=== PATIENT | female | born 1950 | race Caucasian/White ===

== ENCOUNTER 2023-05-28 17:09 | Inpatient (IN) | payer OTHER ==
[2023-05-28] MEDS ORDERED: Ondansetron ODT 4 MG TAB SL PRN (20:15)
[2023-05-28] MEDS ORDERED: Ondansetron PF 4 MG/2 ML Vial IVP PRN (20:15)
[2023-05-28 20:56] VITALS: BMI 30.2
[2023-05-28] MEDS ORDERED: Acetaminophen 650 MG Suppository PR PRN (20:57)
[2023-05-28] MEDS: Acetaminophen 325 MG TAB PO PRN (22:22)
[2023-05-28] MEDS ORDERED: Piperacillin/Tazobactam 3.375 GM in Sodium Chloride 0.9% 100 ML IVPB SCH ×2 (23:15→23:30)
[2023-05-28] MEDS ORDERED: Pantoprazole 40 MG VIAL IVP SCH (23:30)
[2023-05-28] MEDS ORDERED: Vancomycin HCl 500 MG in Sodium Chloride 0.9% 100 ML IVPB SCH (23:30)
[2023-05-29 04:14] LABS: Hematocrit 24.2 % (36.0-47.0); Hemoglobin 6.9 g/dL (12.0-16.0); Manual Diff?? YES; Mean Corpuscular HGB CONC 28.5 g/dL (32.0-36.0); Mean Corpuscular Hemoglobin 20.2 pg (27.0-31.0); Mean Platelet Volume 8.8 fL (7.4-10.4); Platelet Count 747 10x3/uL (130-400); RBC Distribution Width 19.5 % (11.5-14.5); Red Blood Cell (RBC) Count 3.41 mill/uL (4.20-5.40); White Blood Cell (WBC) Count 38.9 10x3/uL (4.8-10.8)
[2023-05-29 04:16] LABS: Delete Auto Diff?? YES
[2023-05-29] MEDS: Piperacillin/Tazobactam 3.375 GM in Sodium Chloride 0.9% 100 ML IVPB SCH ×3 (04:20→20:25)
[2023-05-29 04:40] LABS: Anion Gap 13 mmol/L (10-20); BUN (Urea Nitrogen) 12 mg/dL (9.8-20.1); Calc. Creatinine Clearance 105 mL/min (70-130); Calcium 8.4 mg/dL (7.8-10.44); Carbon Dioxide 24 mmol/L (23-31); Chloride 101 mmol/L (98-107); Estimated GFR 97; Glucose 137 mg/dL (80-115); Potassium 3.5 mmol/L (3.5-5.1); Sodium 134 mmol/L (136-145)
[2023-05-29 04:48] LABS: Anisocytosis MODERATE=16-30 cells HPF (0-5); Band 3 % (5-11); CellaVision Operator ID lab.sh2; Hypochromia SLIGHT = 6-15 cells HPF (0-5); Large Platelets 1.7 % (0-5); Lymphocytes 4 % (21-51); Macrocytosis SLIGHT = 6-15 cells HPF (0-5); Microcytosis SLIGHT = 6-15 cells HPF (0-5); Monocytes 3 % (0-10); Neutrophil 91 % (42-75); Ovalocytes SLIGHT = 2-5 cells HPF (0-1); Platelet Adequacy Comment Platelets Increased; Poikilocytosis MODERATE=16-30 cells HPF (0-5); Polychromasia MODERATE = 3-4 cells HPF (0-2); Target Cells MODERATE= 6-15 cells HPF (0-1); Total Cell Count 115
[2023-05-29] MEDS: Enoxaparin 40 MG (0.4 mL) SYRINGE SC SCH (08:38)
[2023-05-29] MEDS: Pantoprazole 40 MG VIAL IVP SCH (08:38)
[2023-05-29] MEDS: Vancomycin (BATCH) 1.25 GM in Premix 1 BAG IVPB SCH ×2 (08:38→20:56)
[2023-05-29] MEDS: Acetaminophen 325 MG TAB PO PRN ×2 (10:36→20:27)
[2023-05-29 18:19] LABS: Hematocrit 30.6 % (36.0-47.0)
[2023-05-29 18:21] LABS: Platelet Count 848 10x3/uL (130-400)
[2023-05-30] MEDS: Piperacillin/Tazobactam 3.375 GM in Sodium Chloride 0.9% 100 ML IVPB SCH ×3 (05:05→20:27)
[2023-05-30 05:53] LABS: #Basophils 0.1 thou/uL (0.0-0.2); #Eosinphils 0.1 thou/uL (0.0-0.7); #Neutrophils 37.9 thou/uL (1.40-6.50); %Basophils 0.3 % (0.0-1.0); %Eosinophils 0.3 % (0.0-10.0); %Monocytes 4.8 % (0.0-10.0); %Neutrophils 91.3 % (42.0-75.0); Hematocrit 30.2 % (36.0-47.0); Hemoglobin 8.7 g/dL (12.0-16.0); Manual Diff?? YES; Mean Corpuscular HGB CONC 28.8 g/dL (32.0-36.0); Mean Corpuscular Hemoglobin 21.1 pg (27.0-31.0); Mean Corpuscular Volume 73.1 fl (78.0-98.0); Mean Platelet Volume 9.6 fL (7.4-10.4); RBC Distribution Width 19.8 % (11.5-14.5); Red Blood Cell (RBC) Count 4.13 mill/uL (4.20-5.40); White Blood Cell (WBC) Count 41.5 10x3/uL (4.8-10.8)
[2023-05-30 05:55] LABS: Platelet Count 666 10x3/uL (130-400)
[2023-05-30 06:20] LABS: Anisocytosis MODERATE=16-30 cells HPF (0-5); Band 4 % (5-11); CellaVision Operator ID LAB.CLH1; Hypochromia MODERATE=16-30 cells HPF (0-5); Macrocytosis SLIGHT = 6-15 cells HPF (0-5); Microcytosis SLIGHT = 6-15 cells HPF (0-5); Monocytes 2 % (0-10); Neutrophil 94 % (42-75); Platelet Adequacy Comment Platelets Increased; Poikilocytosis MODERATE=16-30 cells HPF (0-5); Polychromasia SLIGHT = 2-3 cells HPF (0-2); Total Cell Count 100
[2023-05-30] MEDS ORDERED: Promethazine HCl 25 MG/ML VIAL IM PRN (08:21)
[2023-05-30] MEDS ORDERED: Ondansetron HCl/PF 4 MG/2 ML Vial IVP PRN (08:21)
[2023-05-30] MEDS: Pantoprazole 40 MG VIAL IVP SCH (08:31)
[2023-05-30] MEDS: Enoxaparin 40 MG (0.4 mL) SYRINGE SC SCH (08:31)
[2023-05-30 08:54] LABS: Vancomycin, Trough 14.7 ug/mL
[2023-05-30] MEDS ORDERED: EPINEPHrine 1 MG/ML VIAL ONE (09:29)
[2023-05-30] MEDS ORDERED: Bupivacaine PF 0.5% 30 ML VIAL ONE (09:29)
[2023-05-30] MEDS ORDERED: PROPOFOL 20 ML ONE (09:37)
[2023-05-30] MEDS ORDERED: fentaNYL 50 mcg/mL 1 mL Vial ONE ×2 (09:38→10:31)
[2023-05-30] MEDS ORDERED: Lidocaine 1% PF 5 ML VIAL ONE ×3 (09:42→09:58)
[2023-05-30] MEDS ORDERED: Rocuronium Bromide 10 MG/ML (10ML VIAL) ONE ×2 (09:43→09:58)
[2023-05-30] MEDS ORDERED: PROPOFOL 200 MG/20 ML VIAL ONE (09:58)
[2023-05-30] MEDS ORDERED: Dexamethasone 20 MG/5 ML VIAL ONE (09:58)
[2023-05-30] MEDS ORDERED: Ondansetron PF 4 MG/2 ML Vial ONE (09:58)
[2023-05-30] MEDS ORDERED: PHENYLEPHRINE-NS 100 MCG/ML 10 ML SYRINGE ONE ×2 (09:58→10:07)
[2023-05-30] MEDS ORDERED: SUGAMMADEX SODIUM 200 MG/2 ML VIAL ONE (11:09)
[2023-05-30] MEDS ORDERED: Morphine 4 MG/ML VIAL SLOW IVP PRN (12:17)
[2023-05-30] MEDS ORDERED: fentaNYL 50 mcg/mL 1 mL Vial SLOW IVP PRN ×2 (12:17)
[2023-05-30] MEDS ORDERED: Ondansetron PF 4 MG/2 ML Vial IVP PRN (12:17)
[2023-05-30] MEDS ORDERED: Ipratropium/Albuterol 3 ML NEB NEB PRN (12:17)
[2023-05-30] MEDS ORDERED: traMADol HCl 50 MG TAB PO PRN (12:17)
[2023-05-30] MEDS: Morphine 2 MG/ML VIAL SLOW IVP PRN ×2 (12:57→22:33)
[2023-05-30] MEDS: Vancomycin (BATCH) 1.25 GM in Premix 1 BAG IVPB SCH ×2 (13:03)
[2023-05-30] MEDS: Clindamycin/D5W 900 MG in Premix 1 BAG IVPB SCH ×2 (13:52→22:33)
[2023-05-30 14:10] LABS: Anion Gap 15 mmol/L (10-20); BUN (Urea Nitrogen) 20 mg/dL (9.8-20.1); Calc. Creatinine Clearance 94 mL/min (70-130); Calcium 8.7 mg/dL (7.8-10.44); Carbon Dioxide 22 mmol/L (23-31); Chloride 103 mmol/L (98-107); Estimated GFR 94; Glucose 146 mg/dL (80-115); Potassium 4.2 mmol/L (3.5-5.1); Sodium 136 mmol/L (136-145)
[2023-05-31] MEDS: Vancomycin (BATCH) 1.25 GM in Premix 1 BAG IVPB SCH ×2 (00:29→12:10)
[2023-05-31] MEDS: Piperacillin/Tazobactam 3.375 GM in Sodium Chloride 0.9% 100 ML IVPB SCH ×3 (04:23→20:49)
[2023-05-31 04:51] LABS: Hematocrit 23.5 % (36.0-47.0); Hemoglobin 6.9 g/dL (12.0-16.0); Manual Diff?? YES; Mean Corpuscular HGB CONC 29.4 g/dL (32.0-36.0); Mean Corpuscular Hemoglobin 20.8 pg (27.0-31.0); Platelet Count 732 10x3/uL (130-400); RBC Distribution Width 19.7 % (11.5-14.5); Red Blood Cell (RBC) Count 3.31 mill/uL (4.20-5.40); White Blood Cell (WBC) Count 32.8 10x3/uL (4.8-10.8)
[2023-05-31 05:10] LABS: Delete Auto Diff?? YES
[2023-05-31 05:14] LABS: Anion Gap 12 mmol/L (10-20); BUN (Urea Nitrogen) 25 mg/dL (9.8-20.1); Calc. Creatinine Clearance 86 mL/min (70-130); Calcium 8.4 mg/dL (7.8-10.44); Carbon Dioxide 25 mmol/L (23-31); Chloride 102 mmol/L (98-107); Estimated GFR 88; Glucose 144 mg/dL (80-115); Potassium 3.9 mmol/L (3.5-5.1); Sodium 135 mmol/L (136-145)
[2023-05-31] MEDS: Clindamycin/D5W 900 MG in Premix 1 BAG IVPB SCH ×2 (05:55→14:24)
[2023-05-31 06:13] LABS: Band 1 % (5-11); Lymphocytes 3 % (21-51); Monocytes 1 % (0-10); Neutrophil 95 % (42-75)
[2023-05-31 06:14] LABS: Anisocytosis SLIGHT = 6-15 cells (100X) (0-5/hpf); Ovalocytes MODERATE= 6-15 cells (100X) (0-1/hpf); Poikilocytosis SLIGHT = 6-15 cells (100X) (0-5/hpf); Stomatocytes SLIGHT = 2-5 cells (100X) (0-1/hpf)
[2023-05-31 06:15] LABS: Hypochromia SLIGHT = 6-15 cells (100X) (0-5/hpf); Microcytosis MODERATE=15-30 cells (100X) (0-5/hpf); Polychromasia SLIGHT = 2-3 cells (100X) (0-2/hpf)
[2023-05-31 06:16] LABS: Platelet Adequacy Comment Appears Increased; Schistocytes SLIGHT = 2-5 cells (100X) (0-1/hpf)
[2023-05-31] MEDS ORDERED: FLU VACC QS2023(65UP)/MF59C/PF 60 MCG/0.5 ML SYRINGE IM ONE (09:00)
[2023-05-31] MEDS: Enoxaparin 40 MG (0.4 mL) SYRINGE SC SCH (09:41)
[2023-05-31] MEDS: Pantoprazole 40 MG VIAL IVP SCH (09:41)
[2023-05-31] MEDS: Morphine 2 MG/ML VIAL SLOW IVP PRN (11:34)
[2023-05-31] MEDS: traMADol HCl 50 MG TAB PO PRN (11:34)
[2023-06-01] MEDS: Clindamycin/D5W 900 MG in Premix 1 BAG IVPB SCH ×4 (00:01→23:01)
[2023-06-01 00:43] LABS: Vancomycin, Trough 20.5 ug/mL
[2023-06-01] MEDS: Vancomycin 1 GM in Premix 1 BAG IVPB SCH ×2 (01:21→13:06)
[2023-06-01 04:46] LABS: #Basophils 0.1 thou/uL (0.0-0.2); #Eosinphils 0.5 thou/uL (0.0-0.7); #Monocytes 1.6 thou/uL (0.11-0.59); #Neutrophils 17.2 thou/uL (1.40-6.50); %Basophils 0.2 % (0.0-1.0); %Eosinophils 2.2 % (0.0-10.0); %Lymphocytes 6.7 % (21.0-51.0); %Monocytes 7.8 % (0.0-10.0); %Neutrophils 81.4 % (42.0-75.0); Hematocrit 27.8 % (36.0-47.0); Hemoglobin 8.3 g/dL (12.0-16.0); Mean Corpuscular HGB CONC 29.9 g/dL (32.0-36.0); Mean Corpuscular Hemoglobin 21.7 pg (27.0-31.0); Mean Corpuscular Volume 72.6 fl (78.0-98.0); Mean Platelet Volume 8.9 fL (7.4-10.4); Platelet Count 735 10x3/uL (130-400); RBC Distribution Width 22.8 % (11.5-14.5); Red Blood Cell (RBC) Count 3.83 mill/uL (4.20-5.40); White Blood Cell (WBC) Count 21.1 10x3/uL (4.8-10.8)
[2023-06-01 05:12] LABS: Anion Gap 10 mmol/L (10-20); BUN (Urea Nitrogen) 23 mg/dL (9.8-20.1); Calc. Creatinine Clearance 88 mL/min (70-130); Calcium 8.4 mg/dL (7.8-10.44); Carbon Dioxide 28 mmol/L (23-31); Chloride 100 mmol/L (98-107); Estimated GFR 90; Glucose 174 mg/dL (80-115); Potassium 3.7 mmol/L (3.5-5.1); Sodium 134 mmol/L (136-145)
[2023-06-01] MEDS: Piperacillin/Tazobactam 3.375 GM in Sodium Chloride 0.9% 100 ML IVPB SCH ×3 (06:06→20:48)
[2023-06-01] MEDS: Enoxaparin 40 MG (0.4 mL) SYRINGE SC SCH (08:02)
[2023-06-01] MEDS: Pantoprazole 40 MG VIAL IVP SCH (08:02)
[2023-06-01] MEDS: Morphine 2 MG/ML VIAL SLOW IVP PRN (09:18)
[2023-06-01] MEDS ORDERED: Loratadine 10 MG TAB PO PRN (09:28)
[2023-06-01] MEDS ORDERED: Docusate 100 MG CAP PO PRN (11:42)
[2023-06-01] MEDS ORDERED: Polyethylene Glycol 3350 17 GM Packet PO PRN (11:42)
[2023-06-01] MEDS: Vancomycin (BATCH) 1.25 GM in Premix 1 BAG IVPB SCH (19:19)
[2023-06-01] MEDS: Famotidine 20 MG TAB PO SCH (20:48)
[2023-06-01] MEDS: Ketorolac Tromethamine 30 MG (1 mL) VIAL IVP PRN (23:06)
[2023-06-02] MEDS: Piperacillin/Tazobactam 3.375 GM in Sodium Chloride 0.9% 100 ML IVPB SCH ×2 (04:50→12:03)
[2023-06-02] MEDS: Clindamycin/D5W 900 MG in Premix 1 BAG IVPB SCH ×2 (05:04→13:40)
[2023-06-02 05:09] LABS: #Eosinphils 0.6 thou/uL (0.0-0.7); #Monocytes 1.5 thou/uL (0.11-0.59); #Neutrophils 13.6 thou/uL (1.40-6.50); %Basophils 0.2 % (0.0-1.0); %Eosinophils 3.4 % (0.0-10.0); %Monocytes 8.4 % (0.0-10.0); Hematocrit 24.2 % (36.0-47.0); Hemoglobin 7.4 g/dL (12.0-16.0); Mean Corpuscular HGB CONC 30.6 g/dL (32.0-36.0); Mean Corpuscular Hemoglobin 22.7 pg (27.0-31.0); Mean Corpuscular Volume 74.2 fl (78.0-98.0); Mean Platelet Volume 8.9 fL (7.4-10.4); Platelet Count 639 10x3/uL (130-400); RBC Distribution Width 23.4 % (11.5-14.5); Red Blood Cell (RBC) Count 3.26 mill/uL (4.20-5.40); White Blood Cell (WBC) Count 17.4 10x3/uL (4.8-10.8)
[2023-06-02 05:37] LABS: Anion Gap 10 mmol/L (10-20); BUN (Urea Nitrogen) 16 mg/dL (9.8-20.1); Calc. Creatinine Clearance 91 mL/min (70-130); Carbon Dioxide 29 mmol/L (23-31); Chloride 101 mmol/L (98-107); Estimated GFR 93; Glucose 138 mg/dL (80-115); Potassium 3.6 mmol/L (3.5-5.1); Sodium 136 mmol/L (136-145)
[2023-06-02 06:15] LABS: Anisocytosis MODERATE=16-30 cells (100X) (0-5/hpf); Poikilocytosis SLIGHT = 6-15 cells (100X) (0-5/hpf)
[2023-06-02 06:16] LABS: Hypochromia SLIGHT = 6-15 cells (100X) (0-5/hpf); Ovalocytes SLIGHT = 2-5 cells (100X) (0-1/hpf); Polychromasia SLIGHT = 2-3 cells (100X) (0-2/hpf); Stomatocytes SLIGHT = 2-5 cells (100X) (0-1/hpf)
[2023-06-02 06:17] LABS: Platelet Adequacy Comment Platelets Increased
[2023-06-02] MEDS: Multivitamin W/ Minerals 1 TAB PO SCH (08:47)
[2023-06-02] MEDS: Famotidine 20 MG TAB PO SCH ×2 (08:47→21:04)
[2023-06-02] MEDS: Enoxaparin 40 MG (0.4 mL) SYRINGE SC SCH (08:47)
[2023-06-02] MEDS: Acetaminophen 325 MG TAB PO PRN (09:44)
[2023-06-02 13:27] LABS: Hematocrit 27.7 % (36.0-47.0); Hemoglobin 8.3 g/dL (12.0-16.0)
[2023-06-02] MEDS: traMADol HCl 50 MG TAB PO PRN (15:09)
[2023-06-02] MEDS: Ketorolac Tromethamine 30 MG (1 mL) VIAL IVP PRN (21:04)
[2023-06-02] MEDS: Amoxicillin/Potassium Clav 875 MG TAB PO SCH (21:04)
[2023-06-02] MEDS: metroNIDAZOLE 500 MG TAB PO SCH (21:04)
[2023-06-02 23:44] VITALS: TEMP 99
[2023-06-03] MEDS: hydrALAZINE 20 MG/ML VIAL SLOW IVP PRN ×2 (03:31→10:25)
[2023-06-03] MEDS: Acetaminophen 325 MG TAB PO PRN ×2 (03:38→10:31)
[2023-06-03 06:13] LABS: #Basophils 0.1 thou/uL (0.0-0.2); #Eosinphils 0.5 thou/uL (0.0-0.7); #Monocytes 1.5 thou/uL (0.11-0.59); #Neutrophils 16.1 thou/uL (1.40-6.50); %Basophils 0.5 % (0.0-1.0); %Eosinophils 2.3 % (0.0-10.0); %Lymphocytes 6.2 % (21.0-51.0); %Monocytes 7.4 % (0.0-10.0); %Neutrophils 81.1 % (42.0-75.0); Hematocrit 27.1 % (36.0-47.0); Hemoglobin 8.2 g/dL (12.0-16.0); Mean Corpuscular HGB CONC 30.3 g/dL (32.0-36.0); Mean Corpuscular Hemoglobin 22.2 pg (27.0-31.0); Mean Corpuscular Volume 73.4 fl (78.0-98.0); Platelet Count 745 10x3/uL (130-400); RBC Distribution Width 24.2 % (11.5-14.5); Red Blood Cell (RBC) Count 3.69 mill/uL (4.20-5.40); White Blood Cell (WBC) Count 19.8 10x3/uL (4.8-10.8)
[2023-06-03 07:17] LABS: Hypochromia MODERATE=16-30 cells (100X) (0-5/hpf); Microcytosis SLIGHT = 6-15 cells (100X) (0-5/hpf); Ovalocytes SLIGHT = 2-5 cells (100X) (0-1/hpf); Polychromasia SLIGHT = 2-3 cells (100X) (0-2/hpf)
[2023-06-03 07:18] LABS: Platelet Adequacy Comment Platelets Increased; Target Cells SLIGHT = 2-5 cells (100X) (0-1/hpf)
[2023-06-03] MEDS: Amoxicillin/Potassium Clav 875 MG TAB PO SCH (08:50)
[2023-06-03] MEDS: metroNIDAZOLE 500 MG TAB PO SCH (08:50)
[2023-06-03] MEDS: Famotidine 20 MG TAB PO SCH (08:50)
[2023-06-03] MEDS: Enoxaparin 40 MG (0.4 mL) SYRINGE SC SCH (08:51)
[2023-06-03] MEDS: Multivitamin W/ Minerals 1 TAB PO SCH (08:51)
[2023-06-03 12:15] VITALS: BP 177/77
== END 2023-06-03 13:53 | disposition home or self-care (01) | DRG 853 ==
LOC: IMCU/EMU 17:09
PROVIDERS: ADMIT Internal Medicine; ATTEND Internal Medicine
PROC: 3E03329 Introduction of Other Anti-infective into Peripheral Vein, Percutaneous Approach (ICD-10-PCS; 2023-05-28)
PROC: 30233N1 Transfusion of Nonautologous Red Blood Cells into Peripheral Vein, Percutaneous Approach (ICD-10-PCS; 2023-05-29)
PROC: 0BND4ZZ Release Right Middle Lung Lobe, Percutaneous Endoscopic Approach (ICD-10-PCS; principal; 2023-05-30)
PROC: 0W9930Z Drainage of Right Pleural Cavity with Drainage Device, Percutaneous Approach (ICD-10-PCS; 2023-05-30)
PROC: 3E033XZ Introduction of Vasopressor into Peripheral Vein, Percutaneous Approach (ICD-10-PCS; 2023-05-30)
DX: A41.9 Sepsis, unspecified organism (principal); J15.9 Unspecified bacterial pneumonia; Z66 Do not resuscitate; J85.2 Abscess of lung without pneumonia; J86.9 Pyothorax without fistula; J96.01 Acute respiratory failure with hypoxia; J69.0 Pneumonitis due to inhalation of food and vomit; J90 Pleural effusion, not elsewhere classified; E87.1 Hypo-osmolality and hyponatremia; J93.9 Pneumothorax, unspecified; K00.0 Anodontia; D53.9 Nutritional anemia, unspecified; K20.90 Esophagitis, unspecified without bleeding; D25.9 Leiomyoma of uterus, unspecified; Z79.899 Other long term (current) drug therapy; Z90.89 Acquired absence of other organs
CPT/HCPCS: 36415; 36430; 71045; 71275; 74174; 80048; 80053; 80202; 81001; 83605; 83690; 84484; 85025; 86850; 86900; 86901; 87040; 87070; 87077; 87086; 87186; 87205; 93005; 96365; 96366; 96368; C1751; C9113; J0171; J0360; J0456; J0696; J1100; J1650; J1885; J2272; J2405; J2543; J2704; J3010; J3370; J3370-JW; J3490; P9016; Q0162; Q9967; S0020

== ENCOUNTER 2023-07-04 14:23 | Outpatient (CLI) | payer OTHER | END 2023-07-04 14:24 | disposition home or self-care (01) | LOC: RAD 14:23 | PROVIDERS: ATTEND Thoracic Surgery (Cardiothoracic Vascular Surgery) | DX: J86.9 Pyothorax without fistula (principal); J98.4 Other disorders of lung | CPT/HCPCS: 71046 ==